=== PATIENT | male | born 1975 | race Caucasian/White ===

== ENCOUNTER 2019-12-13 18:24 | Emergency (ER) | payer SELFPAY ==
[2019-12-13] MEDS ORDERED: TETRACAINE HCL 0.5% 4ML OPTH ONE (18:43)
[2019-12-13] MEDS ORDERED: FLUORESCEIN SODIUM 1 MG/WRAP ONE (18:43)
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
[2019-12-13] MEDS ORDERED: ACYCLOVIR 400 MG TABLET ONE (18:57)
[2019-12-13 19:10] VITALS: O2SAT 100
[2019-12-13 19:12] VITALS: BP 165/78; TEMP 98
== END 2019-12-13 19:06 | disposition home or self-care (01) ==
LOC: ER 18:24
DX: B02.9 Zoster without complications (principal); I10 Essential (primary) hypertension; Z88.8 Allergy status to other drugs, medicaments and biological substances
CPT/HCPCS: 99283

== ENCOUNTER 2020-08-26 21:41 | Inpatient (IN) | payer SELFPAY ==
--- OUTSIDE RECORDS SUMMARY | 2020-08-26 21:44 | XMS REPORT | Continuity of Care Document ---
:1975 Author Organization [facility] t Address [address] [place] [address] Care Team Providers Name Role Phone Mathew Rey MD Attending Clinician Problems This patient has no known problems. Allergies, Adverse Reactions, Alerts This patient has no known allergies or adverse reactions. Medications This patient has no known medications. Procedures This patient has no known procedures. Encounters Start End Encounter Admission Attending Care Care Encounter Source Date/Time Date/Time Type Type Clinicians Facility Department ID 2019-12-15 2019-12-15 Emergency Candido, TRAUMA [id number] 20:54:58 22:53:00 [facility] [id number] Results This patient has no known results.
[2020-08-26 22:51] LABS: Absolute Lymphocytes (CBC) 2.6 K/uL (0.7-4.9); Basophils % 1.3 % (0-1.3); Hematocrit 44.9 % (39.6-49.0); Lymphocytes % 29.3 % (15.3-44.8); MPV 9.8 fL (7.6-11.3); Protime INR 0.99; RBC Red Blood Cell Count 4.97 M/uL (4.33-5.43)
[2020-08-26 23:16] LABS: ALT/SGPT 152 U/L (12-78); Alkaline Phosphatase 77 U/L (45-117); BUN Blood Urea Nitrogen 15 mg/dL (7-18); Bicarbonate 28 mmol/L (21-32); Bilirubin Direct < 0.1 mg/dL (0-0.2); Bilirubin Total 0.3 mg/dL (0.2-1.0); Glucose Level 195 mg/dL (74-106); NT PRO-BNP 16 pg/mL (<125); Protein, Total 8.5 g/dL (6.4-8.2); Sodium Level 134 mmol/L (136-145); Troponin (Emerg Dept Use Only) < 0.02 ng/mL (0.0-0.045)
[2020-08-26 23:24] LABS: AST/SGOT 63 U/L (15-37); Potassium 4.2 mmol/L (3.5-5.1)
[2020-08-26] MEDS ORDERED: METOPROLOL TARTRATE 5 MG/5 ML INJ IV ONE (23:34)
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
[2020-08-27] MEDS ORDERED: ASPIRIN 81 MG CHEWABLE TABLET ONE (00:32)
[2020-08-27] MEDS ORDERED: ACETAMINOPHEN 500 MG TAB PO PRN (01:33)
[2020-08-27] MEDS ORDERED: HYDRALAZINE HCL 20 MG/ML VIAL IV PRN (01:38)
[2020-08-27] MEDS ORDERED: NA CHLORIDE 0.9% 1,000 ML IV SCH ×2 (02:00→07:26)
[2020-08-27 02:28] VITALS: BMI 37.1
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
[2020-08-27 02:54] VITALS: O2SAT 100
[2020-08-27 04:48] LABS: Urine Appearance CLEAR; Urine Bilirubin NEGATIVE (NEG); Urine Blood NEGATIVE (NEG); Urine Color YELLOW; Urine Glucose NEGATIVE (NEG); Urine Protein NEGATIVE (NEG); Urine Urobilinogen 0.2 mg/dL (0.2-1.0); Urine pH 5.5 (5.0-7.0)
[2020-08-27 04:50] LABS: Urine Microscopic Reflex NO UMIC
--- NOTE | 2020-08-27 07:20 | RAD REPORT ---
EXAM DESCRIPTION: RAD - Chest Single View - 08/26/2020 11:02 pm CLINICAL HISTORY: PAIN COMPARISON: None TECHNIQUE: AP portable chest image was obtained 08/26/2020 11:02 pm . FINDINGS: Lungs are clear. Heart and vasculature are normal. No measurable pleural effusion and no p neumothorax. No acute bony abnormality seen. No acute aortic findings suspected. IMPRESSION: No acute cardiopulmonary process.
[2020-08-27 08:32] LABS: Thyroid Stimulating Hormone 1.97 uIU/mL (0.360-3.740)
[2020-08-27 08:38] VITALS: TEMP 97.3
[2020-08-27] MEDS ORDERED: FOLIC ACID 1 MG TABLET PO SCH (09:00)
[2020-08-27] MEDS ORDERED: ASPIRIN EC 81 MG TAB PO SCH (09:00)
[2020-08-27] MEDS ORDERED: lisinopriL 10 MG TAB PO SCH (09:00)
[2020-08-27] MEDS ORDERED: HEPARIN 5000 UNIT/ML 1 ML VIAL SQ SCH (09:00)
--- NOTE | 2020-08-27 09:49 | RAD REPORT ---
EXAM DESCRIPTION: CT - [id number] - 08/27/2020 3:12 am CLINICAL HISTORY: PAIN TECHNIQUE: Contiguous axial CT images obtained through the brain without IV contrast. Coronal and sa gittal reformatted images were provided. This exam was performed according to our departmental dose-optimization program, which includes autom ated exposure control, adjustment of the mA and/or kV according to patient size and/or use of iterati ve reconstruction technique. COMPARISON: None available for comparison FINDINGS: Brain: No significant white matter changes. No focal mass effect. [place]-white matter differ entiation is within normal limits. No hemorrhage. Ventricles: No ventriculomegaly or midline shift. Extra-axial spaces: No extra-axial collection or hemorrhage. Paranasal sinuses and mastoid air cells: Well-aerated Vessels: Unremarkable Bones: Unremarkable Soft tissues: Unremarkable IMPRESSION: No acute intracranial or extra-axial abnormality. EXAM DESCRIPTION: CT C-SPINE WITHOUT IV CONTRAST CLINICAL HISTORY: PAIN TECHNIQUE: Contiguous axial CT images obtained through the cervical spine without IV contrast. Coron al and sagittal reformatted images also provided. This exam was performed according to our departmental dose-optimization program, which includes autom ated exposure control, adjustment of the mA and/or kV according to patient size and/or use of iterati ve reconstruction technique. COMPARISON: None available for comparison FINDINGS: Vertebra: No acute fracture or subluxation. Disc spaces: Multilevel degenerative changes predominantly at the mid to lower cervical spine and upp er thoracic spine manifested by mild to moderate disc degeneration, endplate changes and prominent co ncentric disc osteophytes. The central thecal sac is moderately compromised at C6-C7. Multilevel fora haylee compromise most pronounced on the left at C5-C6 and C6-C7. Prevertebral soft tissues: Unremarkable Lung apices: Clear IMPRESSION: No acute injury. Electronically signed by: Maggie Way MD 08/26/2020 11:30 PM CDT Due to temporary technical issues with the PACS/Fluency reporting system, reports are being signed by the in house radiologist without review as a courtesy to ensure prompt reporting. The interpreting r adiologist is fully responsible for the content of the report
--- NOTE | 2020-08-27 10:03 | RAD REPORT ---
EXAM DESCRIPTION: MRI - Brain Wo Cont - 08/27/2020 9:52 am CLINICAL HISTORY: cva COMPARISON: Head C Spine Mpr Wo Con dated 08/26/2020 TECHNIQUE: Sagittal T1-weighted images were obtained along with axial PD, heavily T2-weighted and T2 -FLAIR images. Axial DWI and ADC mapping sequences were also obtained along with coronal heavily T2-w eighted images. FINDINGS: No intracranial hemorrhage, mass or acute infarction. There is no edema or shift of midlin e structures. No extra-axial fluid collections. [place]-matter/white matter junction is preserved. Signa l voids are seen as a normal finding in the major intracranial vessels. Patient has rare foci of incr eased T2 signal in the cerebral white matter. This is a primarily left parietal white matter. This wh ite matter signal pattern is nonspecific in a patient this age. This could be early chronic ischemic change. Vasculitis, migraine headache and demyelinization etiologies are possible but needs correlati on with clinical findings and history. Normally cognitive patients can have rare white matter signal abnormalities but are not of clinical significance. No globe or orbital content abnormality. Ventricles are normal. Mastoid air cells and paranasal sinuses are clear. IMPRESSION: No infarction or other acute intracranial finding. A few punctate areas of white matter T2 hyperintensity noted. These findings are nonspecific and can be seen in normal patients. Early chronic ischemic change is a possibility. Vasculitis, migraine headache and demyelinization etiologies are unlikely but not excluded. Correlati on would be needed with any history or pertinent exam findings.
[2020-08-27] MEDS ORDERED: LOPERAMIDE HCL 2 MG CAPSULE PO PRN (13:01)
[2020-08-27 13:56] VITALS: BP 136/85
--- NOTE | 2020-08-27 14:05 | P.DS ---
Admission Date: 08/27/20 Discharge Date: 08/27/20 Primary Care Provider: none Disposition: ROUTINE DISCHARGE Discharge Condition: GOOD Reason for Admission: CVA Consultations: Neurology-Dr. Smith Procedures: CT Scan: COMPARISON: None available for comparison FINDINGS: Brain: No significant white matter changes. No focal mass effect. [place]-white matter differentiation is within normal limits. No hemorrhage. Ventricles: No ventriculomegaly or midline shift. Extra-axial spaces: No extra-axial collection or hemorrhage. Paranasal sinuses and mastoid air cells: Well-aerated Vessels: Unremarkable Bones: Unremarkable Soft tissues: Unremarkable IMPRESSION: No acute intracranial or extra-axial abnormality. EXAM DESCRIPTION: CT C-SPINE WITHOUT IV CONTRAST CLINICAL HISTORY: PAIN TECHNIQUE: Contiguous axial CT images obtained through the cervical spine without IV contrast. Coronal and sagittal reformatted images also provided. This exam was performed according to our departmental dose-optimization program, which includes automated exposure control, adjustment of the mA and/or kV according to patient size and/or use of iterative reconstruction technique. COMPARISON: None available for comparison FINDINGS: Vertebra: No acute fracture or subluxation. Disc spaces: Multilevel degenerative changes predominantly at the mid to lower cervical spine and upper thoracic spine manifested by mild to moderate disc degeneration, endplate changes and prominent concentric disc osteophytes. The central thecal sac is moderately compromised at C6-C7. Multilevel foraminal compromise most pronounced on the left at C5-C6 and C6-C7. Prevertebral soft tissues: Unremarkable Lung apices: Clear IMPRESSION: No acute injury. CXR: FINDINGS: Lungs are clear. Heart and vasculature are normal. No measurable pleural effusion and no pneumothorax. No acute bony abnormality seen. No acute aortic findings suspected. IMPRESSION: No acute cardiopulmonary process. MRI Brain: FINDINGS: No intracranial hemorrhage, mass or acute infarction. There is no edema or shift of midline structures. No extra-axial fluid collections. [place]- matter/white matter junction is preserved. Signal voids are seen as a normal finding in the major intracranial vessels. Patient has rare foci of increased T2 signal in the cerebral white matter. This is a primarily left parietal white matter. This white matter signal pattern is nonspecific in a patient this age. This could be early chronic ischemic change. Vasculitis, migraine headache and demyelinization etiologies are possible but needs correlation with clinical findings and history. Normally cognitive patients can have rare white matter signal abnormalities but are not of clinical significance. No globe or orbital content abnormality. Ventricles are normal. Mastoid air cells and paranasal sinuses are clear. IMPRESSION: No infarction or other acute intracranial finding. A few punctate areas of white matter T2 hyperintensity noted. These findings are nonspecific and can be seen in normal patients. Early chronic ischemic c hange is a possibility. Vasculitis, migraine headache and demyelinization etiologies are unlikely but not excluded. Correlation would be needed with any history or pertinent exam findings. 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 Patient presented with right-sided paresthesias and headache. Patient found to be hypertensive in the emergency room. He apparently stopped taking lisinopril 6 months ago as he felt well. Over the past several days he has had right-sided paresthesias and headache. Initial CT head unremarkable. Patient was admitted for further evaluation and treatment. LFTs were elevated along with blood sugar. Hospital Course: Patient reported right-sided paresthesias. This was associated with some headaches. Symptoms have resolved. Initial CT scan unremarkable. MRI also unremarkable for acute CVA but early chronic ischemic changes noted. Patient was evaluated by neurology. TIA suspected. Neurology recommended compliance with his medications. Patient also with underlying hypertension uncontrolled off medication. At discharge patient will continue with aspirin 81 mg daily, folic acid 1 mg daily, fish oil 1000 mg 2 pills twice daily and lisinopril 10 mg daily. Compliance with medication address in detail. Patient understands the risk of TIA/CVA if non compliant with medication. Neurology also recommend starting Topamax 25 mg at bedtime for possible underlying migraine headaches. Education on TIA, hypertension, and mixed hyperlipidemia provided. Patient with hypertension. This was on controlled. Patient previously on medication but he stopped this several months ago. Lisinopril was restarted. Blood pressure now better controlled. At discharge will continue with lisinopril 10 mg daily. Recommend to maintain blood pressure less 150/80. Further adjustment can be done by his PCP. Patient with migraine headaches. As recommended above patient will continue with Topamax 25 mg at bedtime. Education on migraine headaches will be provided. Recommend follow up with Neurology in 2-4 weeks to monitor his progress. Patient with hyperglycemia. Hemoglobin A1c 6.8 indicates diabetes mellitus type 2. Recommend diet control at this time. Education on diabetes provided. Recommend to monitor blood sugar at least twice daily. Recommend to maintain blood sugar less than 140 fasting and less than 200 after meals. If blood sugar remains elevated he is to contact his PCP for further recommendation as the patient may require medication in the future. Patient found to have mixed hyperlipidemia. Triglycerides 289, total cholesterol 203, LDL 207. Due to his elevation in liver function statin medication was not initiated. Patient will continue with fish oil 1000 mg 2 pills twice daily. Recommend to recheck fasting lipid panel in 4 weeks to monitor his progress. If still elevated the distal medication may be required. Patient with elevated liver function. This may be multifactorial. Patient denies any use of IV drug use or sexually transmitted infection. Hepatitis panel obtained. Patient admits using Tylenol as needed for pain. Ultrasound of the right upper quadrant was ordered to further evaluate but patient declined to have this done in the hospital as he was wanting to go home. Will recommend right upper quadrant abdominal ultrasound to be done as an outpatient. This can be done with the help of his PCP. At discharge recommend to limit Tylenol use. Recommend follow up with PCP to follow up hepatitis panel. Recommend to recheck lab-CMP in 1-2 weeks to monitors progress. CT scan also revealed multi level degenerative disc and joint disease of the cervical and thoracic spine. Patient admits using Tylenol and Advil for pain. Recommend to limit Tylenol use due to elevated liver function. Recommend also to limit NSAIDS use due to his hypertension. Recommend pain management evalu ation as an outpatient. This could be done with the help of his PCP. No heavy lifting, pushing or pulling recommended at this time. Patient reported some diarrhea. Patient provided Imodium. This could be used as an outpatient. If this persists further evaluation may be required. This could be done with the help of his PCP. PCP to follow up C diff culture. Vital Signs/Physical Exam: Temp Pulse Resp BP Pulse Ox 97.3 F 90 18 136/85 96 08/27/20 12:00 08/27/20 12:00 08/27/20 12:00 08/27/20 12:08/27/20 12:00 General: Alert, In no apparent distress, Oriented x3, Cooperative HEENT: Atraumatic, Normocephalic, PERRLA Neck: Supple Respiratory: Clear to auscultation bilaterally, Normal air movement Cardiovascular: Normal pulses, Regular rate/rhythm Gastrointestinal: Normal bowel sounds, Soft and benign, Non-distended, No masses, No rebound, No guarding Integumentary: No tenderness/swelling, No erythema, No warmth, No cyanosis Neurological: Normal speech, Normal strength at 5/5 x4 extr, Normal tone, Normal affect Laboratory Data at Discharge: WBC 8.9 K/uL (4.3-10.9) 08/26/20 22:40 Hgb 15.7 g/dL (13.6-17.9) 08/26/20 22:40 Hct 44.9 % (39.6-49.0) 08/26/20 22:40 Plt Count 166 K/uL (152-406) 08/26/20 22:40 PT 11.7 SECONDS (9.5-12.5) 08/26/20 22:40 INR 0.99 08/26/20 22:40 Sodium 134 mmol/L (136-145) L 08/26/20 22:40 Potassium 4.2 mmol/L (3.5-5.1) 08/26/20 22:40 BUN 15 mg/dL (7-18) 08/26/20 22:40 Creatinine 1.29 mg/dL (0.55-1.3) 08/26/20 22:40 Glucose 195 mg/dL (74-106) H 08/26/20 22:40 Magnesium 2.0 mg/dL (1.8-2.4) 08/26/20 22:40 Total Bilirubin 0.3 mg/dL (0.2-1.0) 08/26/20 22:40 AST 63 U/L (15-37) H 08/26/20 22:40 ALT 152 U/L (12-78) H 08/26/20 22:40 Alkaline Phosphatase 77 U/L (45-117) 08/26/20 22:40 Triglycerides 289 mg/dL (<150) H 08/27/20 07:52 Cholesterol 303 mg/dL (<200) H 08/27/20 07:52 HDL Cholesterol 38 mg/dL (40-60) L 08/27/20 07:52 Cholesterol/HDL Ratio 7.97 09/28/20 07:52 Home Medications: Aspirin [Aspirin EC 81 MG] 81 mg PO DAILY #90 tablet. 08/27/20 Docosahexanoic AC/Epa [Fish Oil 1,000 MG CAP] 2 cap PO BID #120 cap 08/27/20 Folic Acid 1 mg PO DAILY #90 tablet 08/27/20 Topiramate [Topamax] 25 mg PO BEDTIME #30 tab 08/27/20 lisinopriL [Prinivil*] 10 mg PO DAILY #30 tab 08/27/20 New Medications: Aspirin [Aspirin EC 81 MG] 81 mg PO DAILY #90 tablet. Docosahexanoic AC/Epa [Fish Oil 1,000 MG CAP] 2 cap PO BID #120 cap Folic Acid 1 mg PO DAILY #90 tablet lisinopriL [Prinivil*] 10 mg PO DAILY #30 tab Topiramate [Topamax] 25 mg PO BEDTIME #30 tab Patient Discharge Instructions: 1. Recommend follow up with PCP in 1 week to follow up this hospitalization. 2. Patient reported right-sided paresthesias. This was associated with some headaches. Symptoms have resolved. Initial CT scan unremarkable. MRI also unremarkable for acute CVA but early chronic ischemic changes noted. Patient was evaluated by neurology. TIA suspected. Neurology recommended compliance with his medications. Patient also with underlying hypertension uncontrolled off medication. At discharge patient will continue with aspirin 81 mg daily, folic acid 1 mg daily, fish oil 1000 mg 2 pills twice daily and lisinopril 10 mg daily. Compliance with medication address in detail. Patient understands the risk of TIA/CVA if non compliant with medication. Neurology also recommend starting Topamax 25 mg at bedtime for possible underlying migraine headaches. Education on TIA, hypertension, and mixed hyperlipidemia provided. 3. Patient with hypertension. This was on controlled. Patient previously on medication but he stopped this several months ago. Lisinopril was restarted. Blood pressure now better controlled. At discharge will continue with lisinopril 10 mg daily. Recommend to maintain blood pressure less 150/80. Further adjustment can be done by his PCP. 4. Patient with migraine headaches. As recommended above patient will continue with Topamax 25 mg at bedtime. Education on migraine headaches will be provided. Recommend follow up with Neurology in 2-4 weeks to monitor his progr ess. 5. Patient with hyperglycemia. Hemoglobin A1c 6.8 indicates diabetes mellitus type 2. Recommend diet control at this time. Education on diabetes provided. Recommend to monitor blood sugar at least twice daily. Recommend to maintain blood sugar less than 140 fasting and less than 200 after meals. If blood sugar remains elevated he is to contact his PCP for further recommendation as the patient may require medication in the future. 6. Patient found to have mixed hyperlipidemia. Triglycerides 289, total cholesterol 203, LDL 207. Due to his elevation in liver function statin medication was not initiated. Patient will continue with fish oil 1000 mg 2 pills twice daily. Recommend to recheck fasting lipid panel in 4 weeks to monitor his progress. If still elevated the distal medication may be required. 7. Patient with elevated liver function. This may be multifactorial. Patient denies any use of IV drug use or sexually transmitted infection. Hepatitis panel obtained. Patient admits using Tylenol as needed for pain. Ultrasound of the right upper quadrant was ordered to further evaluate but patient declined to have this done in the hospital as he was wanting to go home. Will recommend right upper quadrant abdominal ultrasound to be done as an outpatient. This can be done with the help of his PCP. At discharge recommend to limit Tylenol use. Recommend follow up with PCP to follow up hepatitis panel. Recommend to recheck lab-CMP in 1-2 weeks to monitors progress. 8. CT scan also revealed multi level degenerative disc and joint disease of the cervical and thoracic spine. Patient admits using Tylenol and Advil for pain. Recommend to limit Tylenol use due to elevated liver function. Recommend also to limit NSAIDS use due to his hypertension. Recomm end pain management evaluation as an outpatient. This could be done with the help of his PCP. No heavy lifting, pushing or pulling recommended at this time. 9. Patient reported some diarrhea. Patient provided Imodium. This could be used as an outpatient. If this persists further evaluation may be required. This could be done with the help of his PCP. PCP to follow up C diff culture. Diet: ADA Activity: Ad jessie Time spent managing pt's care (in minutes): 55
--- NOTE | 2020-08-27 14:18 | ECHO ---
HEIGHT: 5 ft 7 in WEIGHT: 237 lb 6.4 oz DATE OF STUDY: 08/27/[address]: Sam Gutierrez 2-DIMENSIONAL: YES M.MODE: YES DOPPLER: YES COLOR FLOW: YES TDS: PORTABLE: DEFINITY: BUBBLE STUDY: DIAGNOSIS: CEREBRAL VASCULAR ACCIDENT CARDIAC HISTORY: CATHERIZATION: YES SURGERY: NO PROSTHETIC VALVE: NO PACEMAKER: NO MEASUREMENTS (cm) DIASTOLIC (NORMALS) SYSTOLIC (NORMALS) IVSd 1.0 (0.6-1.2) LA Diam (1.9-4.0) LVEF 69% LVIDd 3.5 (3.5-5.7) LVIDs 2.2 (2.0-3.5) %FS 37% LVPWd 1.0 (0.6-1.2) Ao Diam 3.0 (2.0-3.7) 2 DIMENSIONAL ASSESSMENT: RIGHT ATRIUM: NORMAL LEFT ATRIUM: NORMAL RIGHT VENTRICLE: NORMAL LEFT VENTRICLE: NORMAL TRICUSPID VALVE: NORMAL MITRAL VALVE: NORMAL PULMONIC VALVE: NORMAL AORTIC VALVE: NORMAL PERICARDIAL EFFUSION: NONE AORTIC ROOT: NORMAL LEFT VENTRICULAR WALL MOTION: NORMAL DOPPLER/COLOR FLOW: NORMAL COMMENTS: NORMAL LEFT VENTRICULAR EJECTION FRACTION 55-60%. NORMAL WALL MOTION. TECHNOLOGIST: LARRY ROSALES
[2020-08-27] MEDS ORDERED: ATORVASTATIN 40 MG TAB PO SCH (21:00)
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
[2020-08-29 12:15] LABS: C.diff Antigen/Toxin Ag neg : Tox neg (NEG : NEG)
[2020-08-29 18:15] LABS: HBsAG Nonreactive (Nonreactive)
== END 2020-08-27 15:36 | disposition home or self-care (01) | DRG 69 ==
LOC: ER 21:41 → 2ND 08-27 01:34 → OBSVTOIN 08-27 01:34
PROVIDERS: ADMIT Hospitalist; ATTEND Family Medicine
DX: G45.9 Transient cerebral ischemic attack, unspecified (principal); G81.91 Hemiplegia, unspecified affecting right dominant side; I10 Essential (primary) hypertension; I25.2 Old myocardial infarction; R20.2 Paresthesia of skin; E11.65 Type 2 diabetes mellitus with hyperglycemia; E78.2 Mixed hyperlipidemia; R94.5 Abnormal results of liver function studies; M50.30 Other cervical disc degeneration, unspecified cervical region; M47.894 Other spondylosis, thoracic region; A08.4 Viral intestinal infection, unspecified; R22.1 Localized swelling, mass and lump, neck; R51 Headache; Z88.8 Allergy status to other drugs, medicaments and biological substances; Z91.14 Patient's other noncompliance with medication regimen; Z20.828 Contact with and (suspected) exposure to other viral communicable diseases
CPT/HCPCS: 36415; 70450; 70551; 71045; 72125; 80048; 80061; 80074; 80076; 81003; 83036; 83735; 83880; 84439; 84443; 84484; 85025; 85610; 87324; 87449; 93005; 93306; 96374; 97116; 97161; 99285; J1644; J7030; U0002